=== PATIENT | female | born 1940 | race American Indian/Alaskan Native ===

== ENCOUNTER 2017-05-09 19:48 | Emergency (ER) | payer MEDICARE, OTHER, MEDICAID ==
[~2017-05-09] VITALS: Ht 152.4 cm; Wt 94.3 kg
[~2017-05-09 19:48] MED LIST: ASPIRIN325 MG PO; ATORVASTATIN CA40 MG PO; BACTRIM DS TAB1 EACH PO; CLOPIDOGREL75 MG PO; DAILY VALUE1 EACH PO; FISH OIL500 MG PO; FUROSEMIDE20 MG PO; JANUVIA50 MG PO; K-TAB10 MEQ PO; LEVEMIR FL100 UNIT/2 SQ; LISINOPRIL40 MG PO; LYRICA25 MG PO; NORCO 5-325 TA1 EACH PO; NOVOLOG FL100 UNIT/1 SUB-Q; NOVOLOG100 UNITS/ IV; TOPROL XL50 MG PO; VICTOZA 3-0.6 MG/0.1 SUB-Q; VITAMIN B COMP1 EACH PO; ZOFRAN ODT4 MG PO
== END 2017-05-09 20:20 | disposition home or self-care (01) ==
LOC: ED 19:48
PROC: 0HQGXZZ Repair Left Hand Skin, External Approach (ICD-10-PCS; principal; 2017-05-09)
DX: S61.217A Laceration without foreign body of left little finger without damage to nail, initial encounter (principal); E11.9 Type 2 diabetes mellitus without complications; I10 Essential (primary) hypertension; E78.00 Pure hypercholesterolemia, unspecified; Z87.891 Personal history of nicotine dependence; Z95.5 Presence of coronary angioplasty implant and graft; Z90.710 Acquired absence of both cervix and uterus; Z90.89 Acquired absence of other organs; Z88.1 Allergy status to other antibiotic agents; Z88.8 Allergy status to other drugs, medicaments and biological substances; Z79.82 Long term (current) use of aspirin; Z79.899 Other long term (current) drug therapy
CPT/HCPCS: 12001; 99282

== ENCOUNTER 2017-06-21 15:04 | Emergency (ER) | payer MEDICARE, MEDICAID, OTHER ==
[~2017-06-21] VITALS: Ht 152.4 cm; Wt 94.3 kg
[2017-06-21] MEDS ORDERED: [UNRECOGNIZED DRUG - OTHER] TOP (15:23)
[2017-06-21] MEDS ORDERED: CLOPIDOGREL75 MG PO (15:24)
[2017-06-21] MEDS ORDERED: CLOBETASOL PROP15 GM TOP (15:24)
[2017-06-21] MEDS ORDERED: NOVOLOG100 UNIT/1 (15:25)
[2017-06-21] MEDS ORDERED: OMEGA 3 1,0001 EACH PO (15:26)
[2017-06-21] MEDS ORDERED: COMPETE1 EACH PO (15:26)
[2017-06-21] MEDS ORDERED: METOPROLOL TART25 MG PO (15:26)
[2017-06-21] MEDS ORDERED: POLYOX WSR-3011 GM (15:27)
--- NOTE | 2017-06-23 07:01 | EKG ---
[facility] [address] [facility] [place] [address] Signed Normal sinus rhythm Rightward axis Borderline ECG When compared with ECG of 16-JUN-2016 12:16, Nonspecific T wave abnormality now evident in Inferior leads Confirmed by DEREK HERNANDEZ MD ([id number]) on 06/23/2017 7:00:42 AM Electronically Signed By: DEREK HERNANDEZ MD 06/23/17 0701 PATIENT NAME: CASESE Electrocardiogram DATE OF : 42 PHYSICIAN: DEREK HERNANDEZ MD REPORT #: [id number] REPORT IS CONFIDENTIAL AND NOT TO BE RELEASED WITHOUT AUTHORIZATION
== END 2017-06-21 19:40 | disposition short-term general hospital (02) ==
LOC: ED 15:04
DX: I11.0 Hypertensive heart disease with heart failure (principal); I50.9 Heart failure, unspecified; E11.9 Type 2 diabetes mellitus without complications; Z87.891 Personal history of nicotine dependence; Z95.9 Presence of cardiac and vascular implant and graft, unspecified; Z90.710 Acquired absence of both cervix and uterus; Z90.89 Acquired absence of other organs; Z88.0 Allergy status to penicillin; Z88.8 Allergy status to other drugs, medicaments and biological substances; Z79.899 Other long term (current) drug therapy; Z79.4 Long term (current) use of insulin; Z79.82 Long term (current) use of aspirin
CPT/HCPCS: 71020; 71260; 80053; 83880; 84484; 85025; 85379; 93005; 93010; 96374; 99285; Q9967

== ENCOUNTER 2021-05-31 09:49 | Emergency (ER) | payer MEDICARE, OTHER ==
[~2021-05-31] VITALS: Ht 152.4 cm; Wt 94.3 kg
[~2021-05-31 09:49] MED LIST changes: +CLOBETASOL PROP15 GM TOP; +COMPETE1 EACH PO; +METOPROLOL TART25 MG PO; +NOVOLOG100 UNIT/1; +OMEGA 3 1,0001 EACH PO; +POLYOX WSR-3011 GM; +[UNRECOGNIZED DRUG - OTHER] TOP
[2021-05-31] MEDS ORDERED: CEPHALEXIN500 M1 PO (14:55)
== END 2021-05-31 15:26 | disposition home or self-care (01) ==
LOC: ED 09:49
DX: N39.0 Urinary tract infection, site not specified (principal); E11.9 Type 2 diabetes mellitus without complications; I10 Essential (primary) hypertension; E78.00 Pure hypercholesterolemia, unspecified; Z87.891 Personal history of nicotine dependence; Z88.0 Allergy status to penicillin; Z88.8 Allergy status to other drugs, medicaments and biological substances; Z79.82 Long term (current) use of aspirin; Z79.4 Long term (current) use of insulin
CPT/HCPCS: 74177; 80053; 81001; 85025; 87088; 96375; 99284-25; J0696; J1170; J2405; J7030; Q9967

== ENCOUNTER 2022-04-15 19:30 | Emergency (ER) | payer MEDICARE, OTHER ==
[~2022-04-15] VITALS: Ht 152.4 cm; Wt 90.0 kg
[~2022-04-15 19:30] MED LIST changes: +CEPHALEXIN500 M1 PO
--- OUTSIDE RECORDS SUMMARY | 2022-04-15 19:36 | XMS ---
PreManage Notification: [employer] Yard Events No recent Security Events currently on file CRITERIA MET - [facility] - 2 Visits in 30 Days - [facility] PROVID[facility] There are no care providers on record at this time. Elmer has no Care Guidelines for this patient. EHarini VISIT COUNT (12 MO.) 1 [facility] NOTE: Visits indicate total known visits. ED/C VISIT TRACKING (12 MO.) [facility] COMPLAINT: - HAS CAST ON ARM AND HAS SWELLIN,PAIN 04/05/2022 10:34 [facility] TYPE: Emergency DIAGNOSES: - Hypoglycemia, unspecified - Weakness - Altered Mental Status 05/31/2021 09:50 [facility] TYPE: Emergency COMPLAINT: - POSS UTI DIAGNOSES: - Allergy status to other drugs, medicaments and biological substances - Essential (primary) hypertension - residential (current) use of insulin - Pure hypercholesterolemia, unspecified - Personal history of nicotine dependence - Right lower quadrant pain - exterminator helper termite (current) use of aspirin - Urinary tract infection, site not specified - Type 2 diabetes mellitus without complications - Allergy status to penicillin INPATIENT VISIT TRACKING (12 MO.) No inpatient visits to display in this time frame [email or web address]
== END 2022-04-15 21:33 | disposition home or self-care (01) ==
LOC: ED 19:30
DX: Z46.89 Encounter for fitting and adjustment of other specified devices (principal); I10 Essential (primary) hypertension; E11.9 Type 2 diabetes mellitus without complications; E78.00 Pure hypercholesterolemia, unspecified; Z87.891 Personal history of nicotine dependence; Z88.0 Allergy status to penicillin; Z88.8 Allergy status to other drugs, medicaments and biological substances; Z79.82 Long term (current) use of aspirin; Z79.4 Long term (current) use of insulin; Z79.899 Other long term (current) drug therapy
CPT/HCPCS: 29125; 99282-25

== ENCOUNTER 2024-11-10 13:34 | Emergency (ER) | payer MEDICARE, OTHER ==
[~2024-11-10] VITALS: Ht 152.4 cm; Wt 86.0 kg
[~2024-11-10 13:34] MED LIST changes: +ARNUITY ELLIPT50 MCG IH; -ASPIRIN325 MG PO; +ASPIRIN81 MG PO; +CEFDINIR300 MG PO; +CLOBETASOL PROP50 G1; +FIRST AID ANT28.4 G1 TP; +GLUCOSE4 GM PO; +HUMALOG100 UNIT/1 SUB-Q; +LYSIPLEX PLUS177 ML; +NEURONTIN300 MG PO; +OTEZLA30 MG PO; +POTASSIUM CHLO10 ME2 PO; +TACROLIMUS30 G1; +VITAMIN D350 MC4 PO; +WEGOVY1 MG/0.5 M SUB-Q
[2024-11-10] MEDS ORDERED: ALBUTEROL/IPRATROPIUM 3 ML NEB ONE (13:44)
[2024-11-10] MEDS ORDERED: IPRATROPIUM BROMIDE 2.5 ML VIAL INH ONE (13:45)
[2024-11-10 13:58] LABS: BASOPHILS 0.2 % (0-2); HEMATOCRIT 42.2 % (35.0-50.0); HEMOGLOBIN 13.8 g/dL (12.0-18.0); MCH 29.2 (27-36); MCHC 32.6 g/dl (30-36); MCV 89.5 fl (81-99); MONOCYTES 4.6 % (0-12); NEUTROPHILS 85.2 % (39-80); PLATELET COUNT 307 K/uL (140-440); RBC 4.72 M/ul (4.3-5.7)
[2024-11-10] MEDS ORDERED: ALBUTEROL/IPRATROPIUM 3 ML NEB INH ONE ×2 (14:00→18:45)
[2024-11-10] MEDS ORDERED: CEFTRIAXONE SODIUM 2 GM in SODIUM CHLORIDE 0.9% 100 ML IV ONE (14:00)
[2024-11-10] MEDS ORDERED: SODIUM CHLORIDE 0.9% 1,000 ML IV PRN ×3 (14:15→16:45)
[2024-11-10] MEDS ORDERED: SODIUM CHLORIDE 0.9% 500 ML IV PRN (14:30)
[2024-11-10 14:32] LABS: ALBUMIN 2.8 g/dL (3.4-5.0); ALBUMIN/GLOBULIN RATIO 0.57 (1.1-2.4); ANION GAP 19.4 (7-21); BILIRUBIN, TOTAL 1.6 mg/dL (0.2-1.0); BUN/CREATININE RATIO 24.52 (6.0-28.6); CALCIUM 8.7 mg/dL (8.5-10.1); CREATININE, SERUM 1.59 mg/dL (0.55-1.02); POTASSIUM 4.4 mmol/L (3.5-5.1); PROTEIN, TOTAL 7.7 g/dL (6.4-8.2)
[2024-11-10] MEDS ORDERED: NOREPINEPHRINE BITARTRATE 250 ML IV SCH (15:00)
[2024-11-10] MEDS ORDERED: LOSARTAN POTASS25 MG PO (15:39)
[2024-11-10] MEDS ORDERED: OZEMPIC0.25 MG/02 SUB-Q (15:39)
[2024-11-10] MEDS ORDERED: INSULIN AS100 UNIT/2 SUB-Q (15:44)
[2024-11-10 16:09] LABS: BILIRUBIN, URINE NEGATIVE (negative); BLOOD/HGB, URINE TRACE-I (Negative); KETONE, URINE SMALL (Negative); LEUK ESTERASE, URINE TRACE (negative); NITRITE, URINE NEGATIVE (negative)
[2024-11-10] MEDS ORDERED: ASPIRIN 300 MG SUPP PR ONE (16:15)
[2024-11-10 16:23] LABS: EPITHELIAL CELLS, URINE SQUAMOUS 1+ /lpf (0-1+); RED BLOOD CELLS, URINE 0-1 /hpf (0-5); WHITE BLOOD CELLS, URINE 21-40 /HPF (0-5)
[2024-11-10 16:25] LABS: BACTERIA, URINE 4+ /hpf (negative); CASTS, URINE NONE SEEN \\lpf; COLLECTION TYPE, URINE CLEAN CATCH; CRYSTALS, URINE TRIPLE PHOSPHATE 2+ (0-1+); REFLEX CULTURE, URINE No (No)
[2024-11-10] MEDS ORDERED: LANTUS SOL100 UNIT/1 SUB-Q (16:50)
[2024-11-10] MEDS ORDERED: JARDIANCE10 MG PO (16:51)
[2024-11-10] MEDS ORDERED: LIPITOR40 MG PO (16:53)
[2024-11-10] MEDS ORDERED: FUROSEMIDE40 MG PO (16:53)
[2024-11-10] MEDS ORDERED: PLAVIX75 MG PO (16:53)
[2024-11-10 16:57] LABS: LACTIC ACID, BLOOD 4.2 mmol/L (0.4-2.0)
[2024-11-10] MEDS ORDERED: PIPERACILLIN/TAZOBACTAM 4.5 GM in SODIUM CHLORIDE 0.9% 100 ML IV ONE (17:00)
[2024-11-10] MEDS ORDERED: levoFLOXacin 750 MG PIGGYBACK IV ONE (17:15)
[2024-11-10] MEDS ORDERED: VANCOMYCIN HCL 2,000 MG in DEXTROSE 5% 500 ML IV ONE (17:30)
[2024-11-10 20:55] VITALS: BP 108/53
--- NOTE | 2024-11-11 13:05 | EKG ---
[facility] [address] [facility] [place] [address] Signed Sinus tachycardia with occasional premature ventricular complexes Rightward axis Marked ST abnormality, possible lateral subendocardial injury Abnormal ECG When compared with ECG of 21-JUN-2017 15:50, premature ventricular complexes are now present Vent. rate has increased BY [address] now depressed in Anterolateral leads T wave inversion now evident in Inferior leads T wave inversion now evident in Anterolateral leads Confirmed by German No DO ([id number]) on 11/11/2024 1:05:16 PM Electronically Signed By: GERMAN NO DO 11/11/24 1305 PATIENT NAME: CASESE Electrocardiogram DATE OF : 42 PHYSICIAN: GERMAN NO DO REPORT #: [id number] REPORT IS CONFIDENTIAL AND NOT TO BE RELEASED WITHOUT AUTHORIZATION
--- NOTE | 2024-11-11 13:06 | EKG ---
[facility] [address] [facility] [place] [address] Signed Sinus tachycardia with occasional premature ventricular complexes and fusion complexes Right bundle branch block Left posterior fascicular block Bifascicular block T wave abnormality, consider inferolateral ischemia Abnormal ECG When compared with ECG of 10-NOV-2024 13:34, (Unconfirmed) fusion complexes are now present (RBBB and left posterior fascicular block) is now present Confirmed by German No DO ([id number]) on 11/11/2024 1:06:03 PM Electronically Signed By: GERMAN NO DO 11/11/24 1306 PATIENT NAME: CASESE Electrocardiogram DATE OF : 42 PHYSICIAN: GERMAN NO DO REPORT #: [id number] REPORT IS CONFIDENTIAL AND NOT TO BE RELEASED WITHOUT AUTHORIZATION
== END 2024-11-10 20:34 | disposition short-term general hospital (02) ==
LOC: ED 13:34
PROVIDERS: Emergency Medicine
DX: A41.9 Sepsis, unspecified organism (principal); R65.21 Severe sepsis with septic shock; S00.03XA Contusion of scalp, initial encounter; I50.9 Heart failure, unspecified; E11.9 Type 2 diabetes mellitus without complications; I10 Essential (primary) hypertension; Z79.899 Other long term (current) drug therapy; Z88.1 Allergy status to other antibiotic agents; Z88.8 Allergy status to other drugs, medicaments and biological substances; Z79.84 Long term (current) use of oral hypoglycemic drugs; Z79.2 Long term (current) use of antibiotics; Z79.82 Long term (current) use of aspirin; X58.XXXA Exposure to other specified factors, initial encounter
CPT/HCPCS: 36415; 51702; 70450; 71045; 71260; 72125; 74177; 80053; 81001; 82550; 82803; 83605; 83880; 84484; 85025; 87040; 87077; 87088; 87186; 93005; 93010; 94640; 96368; 99285-25; A4311; J0696; J1956; J3370; J7030; J7040; J7060; Q9967